=== PATIENT | female | born 2000 | race Caucasian/White ===

== ENCOUNTER 2020-01-10 15:13 | Outpatient (CLI) | payer OTHER, SELFPAY ==
--- NOTE | ~2020-01-10 | US_ITS ---
EXAMINATION: US OB /maternal detail DATE: 01/10/2020 16:41 INDICATION: Second trimester anatomic survey TECHNIQUE: Real-time ultrasound of the pelvis was performed. COMPARISON: None. FINDINGS: There is a single living fetus in vertex presentation. The placenta is fundal. heart rate is 16 3 beats per minute (bpm). cardiac activity and movement are noted. The amniotic fluid in dex is subjectively normal. The following anatomy was identified as normal: 4 chamber heart 3 vessel cord cord insertion kidneys urinary bladder stomach spine diaphragm ventricles cisterna magna cerebellum The following biometric data were obtained: Biparietal diameter (BPD): 5.41 cm; head circumference (HC): 9.9 cm; abdominal circumference (AC): 16 .9 cm; femur length (FL): 3.6 cm. These measurements are concordant. Estimated weight is 453 g +/- 67 g, which correlates with the 42nd percentile when 05/16/2020 is used as estimated date of delivery. As single measurements, these parameters are each equal to the following estimated gestational ages w ith ranges of +/- 2 standard deviations: BPD: 22 weeks 3 days +/- 1 weeks 5 days. HC: 22 weeks 1 days +/- 1 weeks 3 days. AC: 21 weeks 6 days +/- 2 weeks 0 days. FL: 21 weeks 4 days +/- 1 weeks 6 days. estimated gestational age based solely on measurements from this exam is 22 weeks 0 days +/- 1 weeks 4 days. IMPRESSION: 1. Single living fetus in vertex presentation. 2. Estimated weight is 453 g +/- 67 g, which correlates with the 42nd percentile when 05/16/2020 is used as estimated date of delivery. Reviewed, dictated and finalized at location A. IMPRESSION: 1. Single living fetus in vertex presentation. 2. Estimated weight is 453 g +/- 67 g, which correlates with the 42nd per centile when 05/16/2020 is used as estimated date of delivery.
== END 2020-01-10 15:14 | disposition home or self-care (01) ==
PROVIDERS: Visit Provider Obstetrics & Gynecology
DX: Z34.92 Encounter for supervision of normal pregnancy, unspecified, second trimester (principal); Z3A.22 22 weeks gestation of pregnancy
CPT/HCPCS: 76805

== ENCOUNTER 2021-04-17 15:33 | Outpatient (CLI) | payer OTHER, SELFPAY ==
--- NOTE | ~2021-04-17 | US_ITS ---
EXAMINATION: US OB <= 14 weeks fetus DATE: 04/17/2021 16:16 INDICATION: Encounter for supervision of normal . Uncertain dates. TECHNIQUE: Real-time transabdominal pelvic ultrasound was performed. COMPARISON: None. FINDINGS: The uterus measures 15.6 x 11.5 x 7.1 cm. There is an intrauterine gestational sac. heart motio n is identified measuring 157 beats per minute (bpm) by M-mode Doppler. The right ovary measures 3.1 x 2.4 x 2.2 cm. The left ovary measures 3.4 x 1.9 x 1.6 cm. There is no free fluid in the pelvis. The following biometric data were obtained: Biparietal diameter (BPD): 2.7 cm; head circumference (HC): 10.1 cm; abdominal circumference (AC): 8. 4 cm; femur length (FL): 1.5 cm. These measurements are concordant. Estimated weight is 103 g +/- 15 g. As single measurements, these parameters are each equal to the following estimated gestational ages: BPD: 14 weeks 6 days. HC: 14 weeks 5 days. AC: 14 weeks 5 days. FL: 14 weeks 4 days. estimated gestational age based solely on measurements from this exam is 14 weeks 5 days +/- 1 weeks 0 days. IMPRESSION: 1. Single intrauterine gestation with estimated date of delivery of 10/11/2021. Reviewed, dictated and finalized at location A. IMPRESSION: 1. Single intrauterine gestation with estimated date of delivery of 10/11/2021 .
== END 2021-04-17 15:34 | disposition home or self-care (01) ==
PROVIDERS: Visit Provider Obstetrics & Gynecology
DX: Z34.92 Encounter for supervision of normal pregnancy, unspecified, second trimester (principal); Z3A.14 14 weeks gestation of pregnancy
CPT/HCPCS: 76801

== ENCOUNTER 2025-04-16 21:26 | Emergency (ER) | payer OTHER, SELFPAY ==
--- NOTE | ~2025-04-16 | US_ITS ---
EXAMINATION: US OB <= 14 weeks fetus DATE: 04/16/2025 23:28 CDT INDICATION: Syncopal episode COMPARISON: None TECHNIQUE: Real-time transabdominal obstetric ultrasound. FINDINGS: 3 para 2 Estimated date of delivery by last menstrual period is 11/18/2025 The uterus measures 10.7 x 6.3 x 8.0 cm. A gestational sac is identified within the uterus. A pole is identified, with a crown-rump length that measures 2.25 cm, corresponding to an appro ximate gestational age of 9 weeks and 0 days. cardiac activity is identified at a rate of 176 bpm. The right ovary measures 4.1 x 2.5 x 2.7cm, and contains a corpus luteal cyst. The left ovary measures 2.6 x 1.7 x 2.8 cm. Estimated date of delivery by ultrasound is 11/19/2025 IMPRESSION: Single intrauterine gestation with an approximate gestational age of 9 weeks and 0 days, with c ardiac activity identified. Reviewed, dictated and finalized at location A. IMPRESSION: Single intrauterine gestation with an approximate gestational age of 9 weeks an d 0 days, with cardiac activity identified.
[2025-04-16 21:28] VITALS: BP 132/80; PULSE 80; RESP 16; TEMP 36.7; O2SAT 100
[2025-04-16 22:30] VITALS: BP 126/80; PULSE 84; RESP 15; O2SAT 100
[2025-04-16 22:32] VITALS: O2SAT 100
--- NOTE | 2025-04-16 22:37 | ECG_ITS ---
Test Date: 2025-04-16 23:35:52 Measurements Intervals [place] Rate: 75 P: 27 SD: 144 QRS: 20 QRSD: 81 T: 30 QT: 359 QTc: 403 Interpretive Statements SINUS RHYTHM WITH SINUS ARRHYTHMIA POSSIBLE RIGHT VENTRICULAR CONDUCTION DELAY MINIMAL Q WAVES- HIGH LATERAL LEADS BASELINE ARTIFACT- I, II, V1 BORDERLINE ECG No previous ECG available for comparison Electronically Signed On 04-17-2025 06:09:10 CDT by Manpreet Gaona D.O.
--- NOTE | 2025-04-16 22:40 | ED_ITS ---
HPI - Syncope General Chief Complaint: Syncope Stated Complaint: syncopal episode, 9 weeks Time Seen by Provider: 04/16/25 22:09 History of Present Illness HPI narrative: Patient is a 24-year-old female who presents to the ER with complaints of a syncopal episode. She reports she is approximately 9 weeks with her last menstrual period on February 11, 2025. Patient reports she started feeling lightheaded and experience ringing in her ears earlier today. She reports she passed out and does not think she hit her head, but she just remembers waking up. Patient endorses a headache prior to and after passing out. She reports she has not been urinating as frequently lately and has not been good about drinking water. Patient endorses nausea but denies any vomiting. Related Data Allergies Allergy/AdvReac Type Severity Reaction Status Date / Time No Known Allergies Allergy Unknown Unverified 08/11/19 10:39 No Known Allergies Allergy Uncoded 08/11/19 10:39 Exam Narrative: GENERAL: Well appearing, well-nourished, non-toxic, in no acute distress. HEAD: Normocephalic, atraumatic NECK: Supple. No adenopathy, no masses. No pain with palpation RESPIRATORY: Airway patent, respirations nonlabored. Clear to auscultation bilaterally, no rales, rhonchi, wheezing. CARDIOVASCULAR: Regular rate and rhythm without murmurs, rubs, or gallops. Peripheral pulses 2+ and equal bilaterally. ABDOMINAL: Soft, nontender, nondistended, no hepatosplenomegaly. Normoactive BS. MUSCULOSKELETAL: Moves all extremities. Strength/ROM intact without gross deformities. SKIN: Warm, dry, normal color. No rashes. NEURO: A&O X3. Speech clear. Cranial nerves II-XII intact. No ataxic movements. PSYCHIATRIC: Appropriate mood and affect. Normal interaction. Course Vital Signs Vital signs: Vital Signs Temperature 36.7 C 04/16/25 21:28 Pulse Rate 80 04/16/25 21:28 Respiratory Rate 16 04/16/25 21:28 Blood Pressure 132/80 04/16/25 21:28 Pulse Oximetry 100 04/16/25 21:28 Oxygen Delivery Room Air 04/16/25 21:28 Temperature 36.7 C 04/16/25 21:28 Pulse Rate 84 06/24/25 22:30 Respiratory Rate 15 04/16/25 22:30 Blood Pressure 126/80 04/16/25 22:30 Pulse Oximetry 100 04/16/25 22:32 Oxygen Delivery Room Air 04/16/25 22:32 MDM - Syncope MDM Narrative Medical decision making narrative: Patient is a 24-year-old female who presents to the ER with complaints of a syncopal episode. She reports she is approximately 9 weeks with her last menstrual period on February 11, 2025. Patient reports she started feeling lightheaded and experience ringing in her ears earlier today. She reports she passed out and does not think she hit her head, but she just remembers waking up. Patient endorses a headache prior to and after passing out. She reports she has not been urinating as frequently lately and has not been good about drinking water. Patient endorses nausea but denies any vomiting. Labs Ordered: CBC, CMP, UA Imaging Ordered: Ultrasound Ob Medications Ordered: 1 L normal saline IV bolus, Tylenol 1 g p.o. Patient has chosen to refuse further care. Risks of an incomplete evaluation and treatment were discussed with the patient, including potential for or permanent disability. Patient seems to understand these risks, but still desires to refuse further care. Patient recommended to follow up with her OBGYN in the next possible interval. Specifically, patient was told they can return to the ED at any time to resume care. Differential Diagnosis Differential diagnosis: Likely syncope due to orthostatic hypotension, vasovagal syncope and dehydration Discharge Plan Discharge Clinical Impression: Syncope due to orthostatic hypotension, Dehydration Patient Disposition: Left Against Medical Advice Condition: Stable Patient Language: Vietnamese Follow-up/Referrals: Cj,Gloria Murillo APN [Primary Care Provider] -
[2025-04-16] MEDS: ACETAMINOPHEN 500 MG TABLET 1000 MG PO (23:12)
--- NOTE | 2025-04-16 23:13 | PC.NURSE ---
RN went into pt room to start IV for blood draw and IV fluids along with tylenol. Pt asks this RN if there is something she can do at home instead of staying her due to her kids acting up. RN notified TAHMINA Chauhan and she states she will go into pt room when she gets available. Pt notified that [facility] ROOM ATTENDANT will come talk to her about possible solutions. Pt states she just wants the tylenol for now and denies IV and fluids and EKG at this time. TAHMINA Chauhan notified.
--- NOTE | 2025-04-16 23:45 | PC.NURSE ---
Pt called out to ED office secretary desk via call light stating she is wanting to go home. TUMBLERS SUPERVISOR Gissel notified and verbally states she is fine with pt going home signing out AMA. RN goes into pt room with AMA papers goes over the risks of leaving and informs pt to come back in immediately if anything worsens. RN also advised pt to hydrate well at home. Pt left AMA with steady gait to ED exit at this time.
== END 2025-04-16 23:48 | disposition left against medical advice (07) ==
LOC: ANHED 22:25
PROVIDERS: Emergency Provider Registered Nurse; PCP Nurse Practitioner Family
DX: O99.411 Diseases of the circulatory system complicating pregnancy, first trimester (principal); I95.1 Orthostatic hypotension; O99.281 Endocrine, nutritional and metabolic diseases complicating pregnancy, first trimester; E86.0 Dehydration; Z3A.09 9 weeks gestation of pregnancy; R94.31 Abnormal electrocardiogram [ECG] [EKG]
CPT/HCPCS: 76801; 93005; 96360; 99284; A9270